=== PATIENT | female | born 1995 | race Caucasian/White ===

== ENCOUNTER 2018-05-10 15:20 | Emergency (ER) | payer MEDICAID, OTHER ==
[2018-05-10] MEDS ORDERED: ACETAMINOPHEN 325 MG TABLET PO ONE (16:36)
[2018-05-10] MEDS ORDERED: PROMETHAZINE HCL 25 MG TABLET PO ONE (16:36)
[2018-05-10] MEDS ORDERED: ONDANSETRON 4 MG TAB.RAPDIS PO ONE (16:36)
--- NOTE | 2018-05-10 16:40 | ER Document Report ---
ED Medical Screen (RME) - General Chief Complaint: Headache Stated Complaint: WEAKNESS Time Seen by Provider: 05/10/18 16:29 Notes: Patient says that she is having right facial pain beginning this morning. It extends along the right side of the face and behind the right ear. She is noted a small knot behind her ear that is very tender to touch. No change in her hearing. No discharge from the ear. No pain inside her ear. Says she feels somewhat weak and shaky. Has vomited a couple of times. No diarrhea. Still nauseated now. Patient has no facial asymmetry or any weakness of the facial muscles or anything that looks like a facial nerve palsy. She does have what feels to be a tender node behind the lower right ear. She has some headache that extends up from the right face to the right forehead region. No rash seen. Heart rate was shown at 129 in triage, but obviously slower as I listen to the patient's chest here so I had them repeat her heart rate and is in the 80s and 90s. TRAVEL OUTSIDE OF THE [place] IN LAST 30 DAYS: No - Related Data Allergies/Adverse Reactions: No Known Allergies Allergy (Verified 05/10/18 16:24) Past Medical History - Social History Chew tobacco use (# tins/day): No Frequency of alcohol use: Occasional Drug Abuse: None Renal/ Medical History: Denies: Hx Peritoneal Dialysis GI Medical History: Reports: Hx Ulcer Musculoskeltal Medical History: Reports Hx Arthritis - lower back - Immunizations Hx Diphtheria, Pertussis, Tetanus Vaccination: Yes Physical Exam - Vital signs Vitals: Temp Pulse Resp BP Pulse Ox 98.6 F 129 H 26 H 143/100 H 99 05/10/18 15:27 05/10/18 15:27 05/10/18 15:27 05/10/18 15:27 05/10/18 15:27 Course - Vital Signs Vital signs: Temp Pulse Resp BP Pulse Ox 98.6 F 93 26 H 143/100 H 100 05/10/18 15:27 05/10/18 16:34 05/10/18 15:27 05/10/18 15:27 05/10/18 16:34 Doctor's Discharge - Discharge Referrals: AIDEN LOPEZ MD [Primary Care Provider] - Follow up as needed
[2018-05-10 17:12] LABS: ABSOLUTE EOSINOPHILS # (AUTO) 0.1 10^3/uL (0.0-0.6); ABSOLUTE LYMPHOCYTES (AUTO) 1.8 10^3/uL (0.5-4.7); ABSOLUTE MONOCYTES (AUTO) 0.6 10^3/uL (0.1-1.4); ABSOLUTE NEUT (AUTO) 5.8 10^3/uL (1.7-8.2); BASOPHILS % (AUTO) 0.5 % (0-2); EOSINOPHILS % (AUTO) 0.7 % (0-6); HEMATOCRIT 45.8 % (36.0-47.0); HEMOGLOBIN 15.7 g/dL (12.0-15.5); LYMPHOCYTES % (AUTO) 21.9 % (13-45); MEAN CORPUSCULAR HEMOGLOBIN 30.5 pg (27.0-33.4); MEAN CORPUSCULAR HGB CONC 34.3 g/dL (32.0-36.0); MEAN CORPUSCULAR VOLUME 89 fl (80-97); MONOCYTES % (AUTO) 7.1 % (3-13); PLATELET COUNT 219 10^3/uL (150-450); RED BLOOD COUNT 5.15 10^6/uL (3.72-5.28); SEGMENTED NEUTROPHILS % (AUTO) 69.8 % (42-78); TOTAL CELLS COUNTED % (AUTO) 100 %; WHITE BLOOD COUNT 8.4 10^3/uL (4.0-10.5)
[2018-05-10 17:30] LABS: ALANINE AMINOTRANSFERASE 21 U/L (9-52); ALBUMIN 5.1 g/dL (3.5-5.0); ALKALINE PHOSPHATASE 65 U/L (38-126); ANION GAP 14 (5-19); ASPARTATE AMINO TRANSFERASE 11 U/L (14-36); BILIRUBIN,DIRECT 0.2 mg/dL (0.0-0.4); BILIRUBIN,TOTAL 0.6 mg/dL (0.2-1.3); BLOOD UREA NITROGEN 8 mg/dL (7-20); CALCIUM 10.1 mg/dL (8.4-10.2); CARBON DIOXIDE 27 mmol/L (22-30); CHLORIDE 103 mmol/L (98-107); GLUCOSE 90 mg/dL (75-110); POTASSIUM 4.6 mmol/L (3.6-5.0); SODIUM 143.6 mmol/L (137-145); TOTAL PROTEIN 8.4 g/dL (6.3-8.2)
[2018-05-10] MEDS ORDERED: IBUPROFEN 800 MG TABLET PO ONE (17:40)
[2018-05-10] MEDS ORDERED: OXYCODONE HCL IR 5 MG TABLET PO ONE (17:40)
[2018-05-10] MEDS ORDERED: AMOXICILLIN TRIHYDRATE 500 MG CAPSULE PO ONE (18:12)
--- NOTE | 2018-05-10 18:16 | ER Document Report ---
HPI - HPI Patient complains to provider of: Headache Time Seen by Provider: 05/10/18 16:29 Onset: This morning Onset/Duration: Persistent Quality of pain: Achy Pain Level: 2 Context: Patient presents complaining of right-sided facial pain that started gradually today. Patient does report nausea with vomiting x2 episodes. Patient denies any fever or head injury. Patient does complain of a tender lymph node behind her right ear. Patient does report subtle swelling to the right cheek area. Associated Symptoms: Nausea, Vomiting, Other - Right-sided facial pain, tender lymph node behind right ear. denies: Fever, Headache, Sore throat Exacerbated by: Denies Relieved by: Denies Similar symptoms previously: No Recently seen / treated by doctor: No - ROS ROS below otherwise negative: Yes Systems Reviewed and Negative: Yes All other systems reviewed and negative - CONSTITUTIONAL Constitutional: DENIES: Fever, Chills - EENT EENT: DENIES: Ear Pain - NEURO Neurology: DENIES: Headache, Dizzinesss / Vertigo - RESPIRATORY Respiratory: DENIES: Coughing - GASTROINTESTINAL Gastrointestinal: REPORTS: Nausea, Patient vomiting. DENIES: Abdominal Pain - MUSCULOSKELETAL Musculoskeletal: DENIES: Neck Pain - DERM Skin Color: Normal Skin Problems: None Past Medical History - General Information source: Patient - Social History Smoking Status: Current Every Day Smoker Chew tobacco use (# tins/day): No Smoking Education Provided: Yes Frequency of alcohol use: Occasional Drug Abuse: None Occupation: [employer] Machine Operator Family History: Reviewed & Not Pertinent Patient has suicidal ideation: No Patient has homicidal ideation: No Renal/ Medical History: Denies: Hx Peritoneal Dialysis GI Medical History: Reports: Hx Ulcer Musculoskeletal Medical History: Reports Hx Arthritis - lower back Surgical Hx: Negative - Immunizations Hx Diphtheria, Pertussis, Tetanus Vaccination: Yes Vertical Provider Document - CONSTITUTIONAL Agree With Documented VS: Yes Exam Limitations: No Limitations General Appearance: WD/WN, No Apparent Distress - INFECTION CONTROL TRAVEL OUTSIDE OF THE [place] IN LAST 30 DAYS: No - HEENT HEENT: Atraumatic, Normocephalic. negative: Pharyngeal Exudate, Pharyngeal Tenderness, Pharyngeal Erythema, Tympanic Membrane Red, Tympanic Membrane Bulging Mouth Diagram: 1 - Dental caries, no gingival abscess or trismus Notes: Patient with subtle swelling to right cheek area, no palpable enlargement of parotid gland, no maxillary sinus or frontal sinus tenderness. Normal skin color and temperature to the right side of face, no concern for abscess. Patient with tender postauricular node on the right, no mastoid tenderness or swelling. - NECK Neck: Lymphadenopathy-Right - RESPIRATORY Respiratory: Breath Sounds Normal, No Respiratory Distress, Chest Non-Tender - CARDIOVASCULAR Cardiovascular: Regular Rate, Regular Rhythm, No Murmur. negative: Tachycardia - GI/ABDOMEN Gastrointestinal: Abdomen Soft, Abdomen Non-Tender, Normal Bowel Sounds - BACK Back: Normal Inspection - MUSCULOSKELETAL/EXTREMETIES Musculoskeletal/Extremeties: CHARAN PEREIRA - NEURO Level of Consciousness: Awake, Alert, Appropriate Motor/Sensory: No Motor Deficit - DERM Integumentary: Warm, Dry, No Rash Course - Re-evaluation Re-evalutation: 05/10/18 18:[address] Barkley regarding patient presentation and disposition. Agrees with plan to start short course of antibiotics, no additional testing advised at this time. - Vital Signs Vital signs: Temp Pulse Resp BP Pulse Ox 98.6 F 93 26 H 143/100 H 100 05/10/18 15:27 05/10/18 16:34 05/10/18 15:27 05/10/18 15:27 05/10/18 16:34 - Laboratory Result Diagrams: 05/10/18 16:55 05/10/18 16:55 Laboratory results interpreted by me: 05/10/18 05/10/18 16:55 16:55 Hgb 15.7 H AST 11 L Total Protein 8.4 H Albumin 5.1 H 05/10/18 18:13 Labs- Entire Visit 05/10/18 05/10/18 16:55 16:55 WBC 8.4 RBC 5.15 Hgb 15.7 H Hct 45.8 MCV 89 MCH 30.5 MCHC 34.3 RDW 13.0 Plt Count 219 Seg Neutrophils % 69.8 Lymphocytes % 21.9 Monocytes % 7.1 Eosinophils % 0.7 Basophils % 0.5 Absolute Neutrophils 5.8 Absolute Lymphocytes 1.8 Absolute Monocytes 0.6 Absolute Eosinophils 0.1 Absolute Basophils 0.0 Sodium 143.6 Potassium 4.6 Chloride 103 Carbon Dioxide 27 Anion Gap 14 BUN 8 Creatinine 0.61 Est GFR ( Amer) > 60 Est GFR (Non-Af Amer) > 60 Glucose 90 Calcium 10.1 Total Bilirubin 0.6 Direct Bilirubin 0.2 Neonat Total Bilirubin Not Reportable Neonat Direct Bilirubin Not Reportable Neonat Indirect Bili Not Reportable AST 11 L ALT 21 Alkaline Phosphatase 65 Total Protein 8.4 H Albumin 5.1 H Discharge - Discharge Clinical Impression: Facial pain, Dental caries Nausea and vomiting Qualifiers: Vomiting type: unspecified Vomiting Intractability: non-intractable Qualified Code(s): R11.2 - Nausea with vomiting, unspecified Condition: Stable Disposition: HOME, SELF-CARE Instructions: Antinausea Medication ([facility]), Oral Narcotic Medication ([facility]), Vomiting ([facility]) Additional Instructions: Return immediately for any new or worsening symptoms Followup with your primary care provider, call tomorrow to make a followup appointment Prescriptions: Amoxicillin 500 mg PO TID #30 tablet Butalb/Acetaminophen/Caffeine [Fioricet (50-325-40 mg) Tablet] 1 - 2 tab PO Q4H PRN #12 each PRN Reason: Naproxen [Naprosyn 250 Nmg Tablet] 1 tab PO BID #14 tablet Promethazine HCl [Phenergan 25 mg Tablet] 25 mg PO Q6H PRN #10 tablet PRN Reason: Forms: Smoking Cessation Education, Return to Work Referrals: MELYSSA GARCIA PA-C [Primary Care Provider] - 05/12/18
[2018-05-10 18:32] VITALS: BP 125/83
== END 2018-05-10 18:32 | disposition home or self-care (01) ==
LOC: ER 15:20
DX: R51 Headache (principal); R11.2 Nausea with vomiting, unspecified; K02.9 Dental caries, unspecified; R59.0 Localized enlarged lymph nodes; F17.200 Nicotine dependence, unspecified, uncomplicated
CPT/HCPCS: 99283; 36415; 85025; 80053; S0119